=== PATIENT | female | born 1985 | race Caucasian/White ===

== ENCOUNTER 2019-09-16 07:00 | Inpatient (IN) | payer OTHER ==
[~2019-09-16] VITALS: Ht 160 cm; Wt 83.9 kg
[2019-09-23] MEDS ORDERED: PRENATABS RX T1 EACH PO (07:45)
== END 2019-09-25 12:15 | disposition home or self-care (01) | DRG 807 ==
LOC: LDR 09-23 06:53 → OB/GYN 09-23 18:53 → LDR 09-30 07:00
PROVIDERS: ADMIT Obstetrics & Gynecology Maternal & Fetal Medicine
PROC: 10E0XZZ Delivery of Products of Conception, External Approach (ICD-10-PCS; principal; 2019-09-23)
PROC: 0KQM0ZZ Repair Perineum Muscle, Open Approach (ICD-10-PCS; 2019-09-23)
PROC: 4A1HXCZ Monitoring of Products of Conception, Cardiac Rate, External Approach (ICD-10-PCS; 2019-09-23)
PROC: 3E033VJ Introduction of Other Hormone into Peripheral Vein, Percutaneous Approach (ICD-10-PCS; 2019-09-23)
PROC: 4A033R1 Measurement of Arterial Saturation, Peripheral, Percutaneous Approach (ICD-10-PCS; 2019-09-23)
DX: O70.1 Second degree perineal laceration during delivery (principal); Z37.0 Single live birth; Z3A.39 39 weeks gestation of pregnancy

== ENCOUNTER 2019-09-18 12:21 | Outpatient (CLI) | payer OTHER | END 2019-09-18 13:26 | disposition home or self-care (01) | LOC: NST 12:21 | DX: Z34.83 Encounter for supervision of other normal pregnancy, third trimester (principal) ==